=== PATIENT | female | born 2005 | race Caucasian/White ===

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

== ENCOUNTER → 2023-12-03 10:50 | Outpatient (BNVA) | payer BC, MEDICAID, SELFPAY | PROVIDERS: Family Provider Nurse Practitioner Family; PCP Family Medicine; Visit Provider Family Medicine | DX: N39.0 Urinary tract infection, site not specified (principal); R30.0 Dysuria | CPT/HCPCS: 81000; 87086; 87491; 87591 ==

== ENCOUNTER → 2024-03-11 09:15 | Outpatient (BNVA) | payer BC, OTHER, SELFPAY | PROVIDERS: Family Provider Nurse Practitioner Family; PCP Family Medicine; Visit Provider Family Medicine | DX: Z51.81 Encounter for therapeutic drug level monitoring (principal); R63.0 Anorexia; N39.0 Urinary tract infection, site not specified; Z13.6 Encounter for screening for cardiovascular disorders | CPT/HCPCS: 80053; 80061; 83735; 84443; 85025 ==

== ENCOUNTER → 2025-01-13 09:58 | Outpatient (BNVA) | payer BC, MEDICAID, SELFPAY | PROVIDERS: PCP Family Medicine; Referring Provider Family Medicine; Visit Provider Psychiatry & Neurology Neurology | DX: R55 Syncope and collapse (principal) | CPT/HCPCS: 36415; 82306; 82607; 82746; 82947; 83735; 83921; 84132; 84439; 84443 ==

== ENCOUNTER 2025-02-11 08:09 | Outpatient (CLI) | payer BC, MEDICAID, SELFPAY ==
--- NOTE | 2025-02-11 09:15 | USCV_ITS ---
Radha Lea Age: 19 Gender: F : 2005 Exam Date: 02/11/2025 08:31 Ordering Phys: Sha Jeronimo MD ([email or web address]) Technologist: [place] [facility] [place]: [place] BP: 120 / 70 HR: 79 Rhythm: Sinus Technical Quality: Adequate MEASUREMENTS (Male / Female) Normal Values 2D ECHO LV Diastolic Diameter PLAX 3.3 cm 4.2 - 5.9 / 3.9 - 5.3 cm IVS Diastolic Thickness 0.9 cm 0.6 - 1.0 / 0.6 - 0.9 cm IVS Systolic Thickness 1.3 cm LVPW Diastolic Thickness 0.8 cm 0.6 - 1.0 / 0.6 - 0.9 cm LVPW Systolic Thickness 1.2 cm LVOT Diameter 2.0 cm LV Ejection Fraction 2D Teich 63.8 % LV Ejection Fraction MOD 4C 58.2 % LV Ejection Fraction MOD 2C 49.5 % LV Ejection Fraction 2C AL 48.0 % LA Diameter 2.4 cm RA Systolic Volume 4C AL 19.1 ml RA Systolic Volume 4C MOD 19.1 ml Aorta at Sinotubular Diameter 2.4 cm M-MODE LA Ao Ratio MM 1.3 AV Cusp Separation MM 2.1 cm DOPPLER AV Peak Velocity 91.0 cm/s LVOT Peak Velocity 85.0 cm/s AV Area Cont Eq vti 3.2 cm squared AV Area Cont Eq pk 3.0 cm squared MV Peak Velocity 111.0 cm/s TR Peak Velocity 181.0 cm/s TR Peak Gradient 13.1 mmHg TV Peak E Velocity 85.0 cm/s PV Peak Velocity 107.0 cm/s FINDINGS Left Ventricle Normal left ventricular size, systolic function and wall thickness, with no regional wall motion abnormalities. Left ventricular ejection fraction is estimated at 60 %. Normal diastolic function. Right Ventricle The right ventricle is normal in size and function. Right Atrium The right atrium is normal in size. Left Atrium The left atrium is normal in size. Mitral Valve Structurally normal mitral valve without significant stenosis or prolapse. There is no mitral regurgitation. Aortic Valve Structurally normal aortic valve without significant sclerosis or stenosis. There is no aortic regurgitation. Tricuspid Valve Structurally normal tricuspid valve without significant stenosis or regurgitation. Pulmonary artery systolic pressure is normal. Pulmonic Valve Trace pulmonary valve regurgitation. Pericardium Normal pericardium without effusion. Aorta Normal ascending aorta dimension. IVC The inferior vena cava appears normal. CONCLUSIONS Normal left ventricular size, systolic function and wall thickness, with no regional wall motion abnormalities. Left ventricular ejection fraction is estimated at 60 %. Normal diastolic function. No significant valve abnormalities. There is no pericardial effusion. Right atrial pressure is around 5 mm of mercury. Sha Jeronimo MD (Electronically Signed) Final Date: 22 February 2025 17:26 S
[2025-02-11 09:39] LABS: Potassium 3.6 mmol/L (3.5-5.1)
--- NOTE | 2025-02-11 13:00 | MR_ITS ---
WS: [id number] MRI HEAD WITH CONTRAST TECHNIQUE: Sagittal T1, T2 axial, T2 axial FLAIR, axial susceptibility weighted imaging, axial diffusion weighted images, and coronal T2 images were obtained. Pre and post-T1 axial and post T1 coronal images. ADC and FSPGR images. CLINICAL INFORMATION: R55 - Syncope and collapse COMPARISON: MRI 2019 FINDINGS: No evidence of restricted diffusion to suggest acute ischemia. No suspicious intracranial signal abnormalities. No hydrocephalus. Normal posterior fossa. No hemosiderin on susceptibly weighted images. No abnormal gadolinium enhancement. Normal optic chiasm and pituitary infundibulum. Normal vascular flow voids at the skull base. Paranasal sinuses and mastoid air cells are well aerated. MR/MR head wo/w con [id number] IMPRESSION: 1. No acute intracranial findings. 2. No evidence of restricted diffusion to suggest acute ischemia. 3. No abnormal gadolinium enhancement. 4. No suspicious intracranial signal abnormalities.
--- NOTE | 2025-02-11 13:45 | MR_ITS ---
WS: [id number] MRA CAROTID WITHOUT AND WITH GADOLINIUM ENHANCEMENT TECHNIQUE: Axial 2-D TOF and gadolinium bolus images obtained with axial images and axial, sagittal, and coronal 2-D reformatted images. CLINICAL INFORMATION: R55 - Syncope and collapse COMPARISON: None. FINDINGS: RIGHT: RIGHT common carotid artery is patent. No significant RIGHT ICA stenosis. LEFT: LEFT common carotid artery is patent. No significant LEFT ICA stenosis. Codominant and patent vertebral arteries bilaterally. Proximal subclavian arteries are patent. MR/MR angio neck w con* [id number] IMPRESSION: Normal neck MRA
--- NOTE | 2025-02-11 14:30 | MR_ITS ---
WS: [email or web address] MRA HEAD TECHNIQUE: Axial 3-D TOF images obtained with axial images and axial, sagittal, and coronal 2-D reformatted images. CLINICAL INFORMATION: R55 - Syncope and collapse COMPARISON: None. FINDINGS: Distal vertebral arteries are patent. Basilar artery is patent. Normal vascularity to the OUTREACH NURSE territory bilaterally. Both ICAs are patent at the skull base. Normal vascularity to the PAULA and MCA territories bilaterally. No evidence of flow-limiting intracranial stenosis. MR/MR angio head wo con [id number] IMPRESSION: Normal intracranial MRA.
[2025-02-11] MEDS: gadobenate dimeglumine 20 mL vial IV (14:54)
== END 2025-02-11 08:10 | disposition home or self-care (01) ==
LOC: RAD 08:10
PROVIDERS: Internal Medicine; PCP Family Medicine; Visit Provider Internal Medicine Cardiovascular Disease
DX: R55 Syncope and collapse (principal); E16.2 Hypoglycemia, unspecified; E87.6 Hypokalemia; I47.10 Supraventricular tachycardia, unspecified; G90.9 Disorder of the autonomic nervous system, unspecified; R06.02 Shortness of breath
CPT/HCPCS: 36415; 70544; 70548; 70553; 82533; 84132; 93306